=== PATIENT | female | born 1990 | race Caucasian/White ===

== ENCOUNTER → 2020-02-09 11:03 | Outpatient (BNVA) | payer MEDICAID, SELFPAY | PROVIDERS: Family Provider Nurse Practitioner Family; PCP Nurse Practitioner Family; Visit Provider Counselor Professional | DX: F33.1 Major depressive disorder, recurrent, moderate (principal); F41.1 Generalized anxiety disorder | CPT/HCPCS: 90791 ==

== ENCOUNTER → 2021-01-30 12:45 | Outpatient (BNVA) | payer MEDICAID, SELFPAY | PROVIDERS: Family Provider Nurse Practitioner Family; PCP Nurse Practitioner Family; Visit Provider Counselor Professional | DX: F41.1 Generalized anxiety disorder (principal) | CPT/HCPCS: 90834 ==

== ENCOUNTER → 2021-03-28 15:06 | Outpatient (BNVA) | payer OTHER, SELFPAY | PROVIDERS: Family Provider Nurse Practitioner Family; PCP Nurse Practitioner Family; Visit Provider Psychiatry & Neurology Psychiatry | DX: Z03.89 Encounter for observation for other suspected diseases and conditions ruled out (principal); Z79.899 Other long term (current) drug therapy; F41.1 Generalized anxiety disorder; F32.9 Major depressive disorder, single episode, unspecified | CPT/HCPCS: 80053; 80061; 83036; 84443 ==

== ENCOUNTER → 2021-05-16 14:25 | Outpatient (BNVA) | payer MEDICAID, SELFPAY | PROVIDERS: Family Provider Nurse Practitioner Family; PCP Nurse Practitioner Family; Visit Provider Emergency Medicine | DX: N39.0 Urinary tract infection, site not specified (principal); R31.9 Hematuria, unspecified | CPT/HCPCS: 81000 ==

== ENCOUNTER → 2022-08-07 17:42 | Outpatient (BNVA) | payer MEDICAID, SELFPAY | PROVIDERS: Family Provider Nurse Practitioner Family; Visit Provider Emergency Medicine | DX: J02.9 Acute pharyngitis, unspecified (principal) | CPT/HCPCS: 87880 ==

== ENCOUNTER → 2022-08-26 09:14 | Outpatient (BNVA) | payer MEDICAID, SELFPAY | PROVIDERS: Family Provider Nurse Practitioner Family; Visit Provider Emergency Medicine | DX: J02.9 Acute pharyngitis, unspecified (principal); L04.0 Acute lymphadenitis of face, head and neck; J02.0 Streptococcal pharyngitis | CPT/HCPCS: 87880 ==

== ENCOUNTER → 2023-06-14 13:49 | Outpatient (BNVA) | payer MEDICAID, SELFPAY | PROVIDERS: Family Provider Nurse Practitioner Family; Visit Provider Nurse Practitioner Family | DX: R69 Illness, unspecified (principal); Z20.822 Contact with and (suspected) exposure to COVID-19 | CPT/HCPCS: 87400; 87426 ==

== ENCOUNTER → 2023-10-24 11:58 | Outpatient (BNVA) | payer MEDICAID, SELFPAY | PROVIDERS: Family Provider Nurse Practitioner Family; Visit Provider Emergency Medicine | DX: R39.9 Unspecified symptoms and signs involving the genitourinary system (principal) | CPT/HCPCS: 81000; 87077; 87086; 87184 ==

== ENCOUNTER → 2024-03-23 14:19 | Outpatient (BNVA) | payer MEDICAID, SELFPAY | PROVIDERS: Family Provider Nurse Practitioner Family; PCP Nurse Practitioner; Visit Provider Nurse Practitioner | DX: R53.83 Other fatigue (principal); N39.0 Urinary tract infection, site not specified | CPT/HCPCS: 80053; 80061; 81000; 83036; 84443; 85025 ==

== ENCOUNTER → 2024-12-22 16:04 | Outpatient (BNVA) | payer MEDICAID, SELFPAY | PROVIDERS: PCP Nurse Practitioner; Visit Provider Nurse Practitioner | DX: Z78.9 Other specified health status (principal) | CPT/HCPCS: 88175 ==

== ENCOUNTER 2025-07-20 01:31 | Emergency (ER) | payer MEDICAID, SELFPAY ==
[2025-07-20 01:44] VITALS: BP 115/67; PULSE 80; RESP 16; TEMP 36.8; O2SAT 100; BMI 25.6
[2025-07-20 01:58] VITALS: BP 115/67; PULSE 79; O2SAT 100
[2025-07-20 02:41] VITALS: BP 89/71; PULSE 69; O2SAT 98
[2025-07-20] MEDS: ondansetron hcl ODT 4 mg Tab PO (03:01)
[2025-07-20 03:20] LABS: Glucose Urine UA Negative (Normal); HCG Qualitative Urine. Negative (Negative); Nitrate Urine Negative (Negative); Specific Gravity, Urine 1.004 (1.005-1.030)
[2025-07-20 03:25] LABS: Add Urine Microscopic? YES
--- NOTE | 2025-07-20 03:33 | W.ED.GENADLT ---
HPI - General Adult General: Chief complaint: Headache Stated complaint: Dehdrated\Headache Time Seen by Provider: 07/20/25 01:38 History of Present Illness: Patient is a 35-year-old female presenting with a chief complaint of feeling unwell. She has also had a mild right-sided headache today, gradual in onset, behind the right eye that is now resolved after she was able to rest and nap in the emergency department prior to exam. She also reports nausea. Patient states she has been under increased stress because her is hospitalized and has not slept well in the past couple of nights. She has not had a fever. She denies runny nose, sore throat or cough. She denies any chest pain, shortness of breath or syncope. Patient denies abdominal pain. She reports dysuria but no hematuria or flank pain. She denies change in bowel habits or blood in stool. Patient denies possibility of . Related Data Home Medications ?Medication ?Instructions ?Recorded ?Confirmed multivitamin 1 tab PO DAILY 03/23/24 07/04/25 Previous Rx's ?Medication ?Instructions ?Recorded ibuprofen 600 mg tablet 600 mg PO Q8H PRN pain #30 tabs 08/26/22 azithromycin 250 mg tablet See Rx Instructions PO .COMPLEX #6 07/04/25 tabs nitrofurantoin 100 mg PO BID 5 days #10 caps 07/20/25 monohydrate/macrocrystals 100 mg capsule (Macrobid) Allergies Allergy/AdvReac Type Severity Reaction Status Date / Time Penicillins Allergy REBEKAHY-Carlosiste Verified 07/04/25 14:32 r [facility] ED [facility]: Medical History (Updated 07/20/25 @ 03:37 by Vickie Evans MD) Depression Family History Grandmother Cancer maternal- unknown type Thyroid disease maternal Denies family history of Diabetes Heart disease Chronic kidney disease (CKD) Stroke Social History Smoking and tobacco/nicotine status: never used tobacco/nicotine Current gender identity: Female Female Reproductive History: Para: 3 Spontaneous abortions: Yes Physical Exam Narrative: EXAM NARRATIVE: Vital signs were reviewed. Patient is alert and oriented. Patient is breathing comfortably, no increased WOB or accessory muscle use. SpO2 is above 95% on RA. Patient has clear lungs b/l, no rhonchi, wheezing or crackles. No hypotension or tachycardia. Abdomen is soft, nondistended and nontender. No CVA tenderness to percussion of the flanks. Patient is moving all extremities, no deformity or gross injury. No lower extremity edema or asymmetry. Course Vital Signs: Vital signs: Vital Signs Temperature 98.2 F 07/20/25 01:44 Pulse Rate 69 07/20/25 02:41 Respiratory Rate 16 07/20/25 01:44 Blood Pressure 89/71 07/20/25 02:41 Pulse Oximetry 98 07/20/25 02:41 Oxygen Delivery Me thod Room Air 07/20/25 02:41 [facility] - General Adult Medical Decision Making 35-year-old female presenting with a chief complaint of generalized malaise, nausea and mild headache which is resolved prior to my exam. Differential diagnosis includes but is limited to, viral upper respiratory infection, strep pharyngitis, tension headache, migraine, cluster headache, pneumonia, gastroenteritis, urinary tract infection, pyelonephritis, dehydration, other. On exam she is alert and close stable and nontoxic-appearing. She states her headache has improved after resting. She currently does not have a headache. Patient was treated with Tylenol and Zofran for nausea and evaluated with UA and screen. UA shows 2+ leuk esterase, 21-50 white blood cells, 4+ bacteria which is consistent with urinary tract infection in the setting of malaise and dysuria. She has a negative test. Will start her on Macrobid. Patient was counseled on supportive care at home, given return precautions and discharged in stable condition with recommendation for outpatient follow-up. Lab Data Laboratory Results HCG, Qual Negative (Negative) 07/20/25 03:11 Urine Color Yellow (Yellow) 07/20/25 03:11 Urine Appearance Cloudy (CLEAR) A 07/20/25 03:11 Urine pH 6.0 (5-7) 07/20/25 03:11 Ur Specific Heidrick 1.004 (1.005-1.030) L 07/20/25 03:11 Urine Protein Negative (Negative) 07/20/25 03:11 Urine Glucose (UA) Negative (Normal) 07/20/25 03:11 Urine Ketones Trace (Negative) 07/20/25 03:11 Urine Blood Negative (Negative) 07/20/25 03:11 Urine Nitrate Negative (Negative) 07/20/25 03:11 Urine Bilirubin Negative (Negative) 07/20/25 03:11 Urine Urobilinogen 0.2 mg/dL (Negative) 07/20/25 03:11 Ur Leukocyte Esterase 2+ (Negative) A 07/20/25 03:11 Urine RBC 0-2 /hpf (0-2) 07/20/25 03:11 Urine WBC 21-50 /hpf (0-5) H 07/20/25 03:11 Ur Squamous Epith Cells 6-10 /hpf (0-5) 07/20/25 03:11 Amorphous Sediment Not Reportable 07/20/25 03:11 Urine Bacteria 4+ /hpf (NONE) H 07/20/25 03:11 Hyaline Casts 0.40 /lpf 07/20/25 03:11 No radiology studies performed this visit Discharge Plan Discharge Patient Disposition: Home Clinical Impression: Mild headache Urinary tract infection Qualifiers: Urinary tract infection type: acute cystitis Hematuria presence: without hematuria Qualified Code(s): N30.00 - Acute cystitis without hematuria Condition: Stable Prescriptions: New nitrofurantoin monohyd/m-cryst [Macrobid] 100 mg capsule 100 mg PO BID 5 Days Qty: 10 0RF Rx Instructions: must administer with a meal/food No Action ibuprofen 600 mg tablet 600 mg PO Q8H PRN (Reason: pain) Qty: 30 0RF multivitamin Tablet 1 tab PO DAILY azithromycin 250 mg tablet See Rx Instructions PO .COMPLEX Qty: 6 0RF Rx Instructions: For 250 mg dose pack: take 500 mg today (day 1), then 250 mg for 4 days (days 2-5) PO Discharge Orders: Discharge ED (Routine); Ordered 07/20/25 Ordered By: Vickie Evans Referrals: Marilin Adair FNP [Primary Care Provider, Nurse Practitioner] Patient Instructions: Opioid Safety, Pain Management, Patient Portal & Randall Instructions, Urinary Tract Infection - Women Activity Restrictions/Additional Instructions: Please continue to monitor your condition closely at home. Take Ibuprofen 400mg and Tylenol 500-1000mg every six hours for pain and inflammation. Start antibiotics for urinary tract infection as prescribed. If your condition worsens or additional concerns arise, please return promptly to the emergency department for reassessment. Follow up with your primary care doctor in one week. Print Language: Setswana Coding Level of Care Code ED Dry Cleaner Hand for Juvenal Littlejohn
== END 2025-07-20 03:50 | disposition home or self-care (01) ==
PROVIDERS: Emergency Provider Emergency Medicine; PCP Nurse Practitioner
DX: R51.9 Headache, unspecified (principal); N30.00 Acute cystitis without hematuria
CPT/HCPCS: 81001; 81025; 99283; J9999; Q0162

== ENCOUNTER 2025-08-16 01:23 | Emergency (ER) | payer MEDICAID, SELFPAY ==
[2025-08-16 01:27] VITALS: BP 108/63; PULSE 105; RESP 18; TEMP 37.6; O2SAT 98; BMI 23.6
--- NOTE | 2025-08-16 03:33 | XRR_ITS ---
PROCEDURE INFORMATION: Exam: XR Chest Exam date and time: 08/16/2025 3:38 AM Age: 35 years old Clinical indication: Shortness of breath; Additional info: SOB TECHNIQUE: Imaging protocol: Radiologic exam of the chest. Views: 1 view. COMPARISON: No relevant prior studies available. FINDINGS: Lungs: Unremarkable. No consolidation. Pleural spaces: Unremarkable. No pleural effusion. No pneumothorax. Heart/Mediastinum: Unremarkable. No cardiomegaly. Bones/joints: Unremarkable. XR/XR chest 1V portable [id number] IMPRESSION: No acute findings.
[2025-08-16 04:02] LABS: Hematocrit 41.3 % (36-47); Hemoglobin 13.90 g/dL (11.27-16.99); Mean Corpuscular HGB Conc 33.7 g/dL (30-55); Mean Corpuscular Hemoglobin 27.6 pg (27-33); Mean Corpuscular Volume 81.9 fl (85-98); Nucleated Red Blood Cells % 0 %; Platelet Count 157 10^3/cmm (157-399); Red Blood Count 5.04 10^6/uL (3.85-5.65); White Blood Count 5.07 10^3/uL (3.29-11.43)
[2025-08-16 04:18] LABS: Alanine Aminotransferase 10 U/L (0-33); Albumin Level 4.2 g/dL (3.5-5.2); Alkaline Phosphatase 60 U/L (35-105); Anion Gap 16.7 (5-19); Aspartate Amino Transferase 12 U/L (0-32); Blood Urea Nitrogen 5 mg/dL (6-20); Calcium 8.8 mg/dL (8.5-10.5); Carbon Dioxide 22 mmol/L (22-29); Chloride 105 mmol/L (98-107); Globulin 2.9 g/dL (1.3-4.6); Glucose 110 mg/dL (65-115); Osmolality Calculated 288 mOsm/kg (285-295); Potassium 3.7 mmol/L (3.5-5.1); Sodium 140 mmol/L (136-145); Total Protein 7.1 g/dL (6.6-8.7)
--- NOTE | 2025-08-16 04:40 | ED_ITS ---
HPI - Dental/Oral 2 General: Chief complaint: Fever Stated complaint: Fever, HR up Time Seen by Provider: 08/16/25 03:37 History of Present Illness: Patient is a 35-year-old female with no past medical history who presents with a acute on chronic worsening of her right upper tooth pain, 4 days of a dry cough and congestion, mild fatigue. No recent dental procedures. Has reported mild palpitations, has had a low-grade temps at home today, has had no significant shortness of breath, no NVD, no changes in appetite, no urinary changes, no abdominal pain. She takes no daily medications. Related Data Home Medications ?Medication ?Instructions ?Recorded ?Confirmed multivitamin 1 tab PO DAILY 03/23/24 10/0 03/23 Previous Rx's ?Medication ?Instructions ?Recorded ibuprofen 600 mg tablet 600 mg PO Q8H PRN pain #30 t abs 08/26/22 azithromycin 250 mg tablet See Rx Instructions PO .COM PLEX #6 07/04/25 tabs chlorhexidine gluconate 0.12 % 15 ml buccal BID #120 m L 08/16/25 mouthwash (Peridex) clindamycin HCl 300 mg capsule 300 mg PO TID 10 days # 30 caps 08/16/25 (Cleocin HCl) Allergies Allergy/AdvReac Type Severity Reaction Status Date / Time Penicillins Allergy JACE-Magdalena Verified 07/04/25 14:32 r Review of Systems 2 General: Reports: 10 or more systems reviewed and unremarkable except in HPI and below Const: Reports: fatigue ENMT: Reports: dental pain Resp: Reports: non-productive cough PFSH ED 2 PFSH: Medical History (Updated 08/16/25 @ 18:00 by Ronald Samuel DO) Depression Family History Grandmother Cancer maternal- unknown type Thyroid disease maternal Denies family history of Diabetes Heart disease Chronic kidney disease (CKD) Stroke Social History Smoking and tobacco/nicotine status: never used tobacco/nicotine Current gender identity: Female Female Reproductive History: Para: 3 Spontaneous abortions: Yes Physical Exam 2 Narrative: EXAM NARRATIVE: Well-appearing, mild tachycardia and low-grade temp but nontoxic and not ill- appearing, normotensive, no acute distress. Right upper premolar with chipped and with obvious dental carry, no surrounding fluctuance, gingivitis, mild tenderness to palpation, no significant facial swelling, airway patent, no pooling of secretions, no signs of upper airway obstruction. Mild transmitted upper airway breath sounds but no wheezes or crackles, clear and bilateral breath sounds, breathing comfortably on room air, saturating well, able to speak full sentences without getting short of breath, no signs of respiratory distress. Normal sinus rhythm with no murmurs, no leg swelling, good cap refill, 2+ pulses throughout. GCS 15. Course 2 Vital Signs: Vital signs: Vital Signs Temperature 99.7 F H 08/16/25 01:27 Pulse Rate 105 H 08/16/25 01:27 Respiratory Rate 18 08/16/25 01:27 Blood Pressure 108/63 08/16/25 01:27 Pulse Oximetry 98 08/16/25 01:27 Oxygen Delivery Me thod Room Air 08/16/25 01:27 MDM - Dental/Oral Medical Decision Making -ddx: Dental carry, gingivitis, abscess, sinusitis, URI, pneumonia - Patient 35-year-old female with no past medical history, well-appearing, has had acute on chronic worsening tooth pain, no recent dental procedures, no facial swelling, no shortness of breath or changes in her appetite. Patient also with 4 days of mild URI symptoms, has transmitted upper airway breath sounds but nothing in her lower lung zhou, no previous pulmonary pathology, seemingly unaffected respiratory status on exam but with mild tachycardia, low- grade temp, chest x-ray obtained to evaluate for pneumonia which was negative for any consolidations, cardiomegaly, pleural effusions, pneumothorax, rib fracture. She was then able to be discharged on prescription for clindamycin because has a allergy to penicillins for her dental infection which will also cover any anaerobes and hopefully prevent abscess formation, no signs of it at this time, advised that definitive care is dental evaluation for probable extractions which she will schedule appointment tomorrow. She was advised for decongestion with her URI symptoms, stable for discharge home, at bedside, strict return precautions given. Lab Data 08/16/25 03:50 08/16/25 03:50 Radiology Impressions Chest X-Ray 08/16/25 03:33 IMPRESSION: No acute findings. Laboratory Results WBC 5.07 10^3/uL (3.29-11.43) 08/16/25 03:50 RBC 5.04 10^6/uL (3.85-5.65) 08/16/25 03:50 Hgb 13.90 g/dL (11.27-16.99) 08/16/25 03:50 Hct 41.3 % (36-47) 08/16/25 03:50 MCV 81.9 fl (85-98) L 08/16/25 03:50 MCH 27.6 pg (27-33) 08/16/25 03:50 MCHC 33.7 g/dL (30-55) 08/16/25 03:50 RDW 12.5 % (12.1-15.1) 08/16/25 03:50 Plt Count 157 10^3/cmm (157-399) 08/16/25 03:50 MPV 10.0 fL (7.4-10.4) 08/16/25 03:50 Neut % (Auto) 85.8 % 08/16/25 03:50 Lymph % (Auto) 8.5 % 08/16/25 03:50 Park % (Auto) 4.9 % 08/16/25 03:50 Eos % (Auto) 0.2 % 08/16/25 03:50 Baso % (Auto) 0.2 % 08/16/25 03:50 Neut # (Auto) 4.35 10^3/uL (1.8-7.7) 08/16/25 03:50 Lymph # (Auto) 0.4 10^3/uL (0.8-4.8) L 08/16/25 03:50 Park # (Auto) 0.3 10^3/uL (0.2-0.9) 08/16/25 03:50 Eos # (Auto) 0.0 10^3/uL (0.0-0.8) 08/16/25 03:50 Baso # (Auto) 0.0 10^3/uL (0.0-0.1) 08/16/25 03:50 Nucleated RBC % (auto) 0 % 08/16/25 03:50 Nucleated RBCs # 0.0 /100WBC 08/16/25 03:50 Sodium 140 mmol/L (136-145) 08/16/25 03:50 Potassium 3.7 mmol/L (3.5-5.1) 08/16/25 03:50 Chloride 105 mmol/L (98-107) 08/16/25 03:50 Carbon Dioxide 22 mmol/L (22-29) 08/16/25 03:50 Anion Gap 16.7 (5-19) 08/16/25 03:50 BUN 5 mg/dL (6-20) L 08/16/25 03:50 Creatinine 0.6 mg/dL (0.5-0.9) 08/16/25 03:50 GFR Calculation 113.8 mL/min (90-130) 08/16/25 03:50 Glucose 110 mg/dL (65-115) 08/16/25 03:50 Calculated Osmolality 288 mOsm/kg (285-295) 08/16/25 03:50 Calcium 8.8 mg/dL (8.5-10.5) 08/16/25 03:50 Total Bilirubin 0.4 mg/dL (0.15-1.2) 08/16/25 03:50 AST 12 U/L (0-32) 08/16/25 03:50 ALT 10 U/L (0-33) 08/16/25 03:50 Alkaline Phosphatase 60 U/L (35-105) 08/16/25 03:50 Total Protein 7.1 g/dL (6.6-8.7) 08/16/25 03:50 Albumin 4.2 g/dL (3.5-5.2) 08/16/25 03:50 Globulin 2.9 g/dL (1.3-4.6) 08/16/25 03:50 All radiology interpretation(s) finalized by discharge Discharge Plan Discharge Patient Disposition: Home Clinical Impression: Dental caries, Viral infection Condition: Stable Prescriptions: New clindamycin HCl [Cleocin HCl] 300 mg capsule 300 mg PO TID 10 Days Qty: 30 0RF chlorhexidine gluconate [Peridex] 0.12 % mouthwash 15 ml buccal BID Qty: 120 0RF No Action ibuprofen 600 mg tablet 600 mg PO Q8H PRN (Reason: pain) Qty: 30 0RF multivitamin Tablet 1 tab PO DAILY azithromycin 250 mg tablet See Rx Instructions PO .COMPLEX Qty: 6 0RF Rx Instructions: For 250 mg dose pack: take 500 mg today (day 1), then 250 mg for 4 days (days 2-5) PO Discharge Orders: Discharge ED (Routine); Ordered 08/16/25 Ordered By: Ronald Samuel Referrals: Joel Dumont DDS [Occupational Therapist, Doctor of Dental Surgery] - 4-7 days Discharge Diet: Soft Mechanical Patient Instructions: Opioid Safety, Pain Management, Patient Portal & Randall Instructions Activity Restrictions/Additional Instructions: You were seen for your high heart rate and tooth pain, you were evaluated and determined to have a dental infection causing your symptoms. To help treat this, you were given the first dose of an antibiotic, to continue treatment, take the clindamycin every 8 hours for a total of 10 days. Use the Peridex mouthwash twice a day as a numbing and extra cleaning prescription. Mouthwash. The definitive treatment is dental care to see if this needs tooth extraction, follow-up with the above dental clinic as soon as you can for the this evaluation. Return to the ED with severe worsening of the pain, fevers that do not improve with Tylenol, inability to eat or drink, breathing difficulties, any other emergent concerns. Print Language: Wolof Coding Level of Care Code ED Transport Nurse for Juvenal Littlejohn
== END 2025-08-16 05:22 | disposition home or self-care (01) ==
PROVIDERS: Emergency Provider Student in an Organized Health Care Education/Training Program; PCP Nurse Practitioner
DX: K02.9 Dental caries, unspecified (principal); B34.9 Viral infection, unspecified
CPT/HCPCS: 36415; 71045; 80053; 85025; 99284; J9999